=== PATIENT | male | born 1955 | race Caucasian/White ===

== ENCOUNTER 2018-04-29 22:59 | Emergency (ER) | payer BC ==
[2018-04-29] MEDS ORDERED: KETOROLAC 30 MG/ML INJ ONE (23:27)
[2018-04-29] MEDS ORDERED: ONDANSETRON 4 MG/2 ML VIAL ONE (23:27)
[2018-04-29 23:50] LABS: Absolute Lymphocytes (CBC) 2.7 K/uL (0.7-4.9); Absolute Monocytes 0.6 K/uL (0.1-1.3); Absolute Neutrophil 3.7 K/uL (1.8-8.0); Basophils % 0.7 % (0-1.3); Eosinophils % 1.3 % (0-4.4); Lymphocytes % 37.3 % (15.3-44.8); MCH 31.2 pg (27.0-35.0); MPV 9.6 fL (7.6-11.3); RBC Red Blood Cell Count 4.94 M/uL (4.33-5.43)
[2018-04-30 00:02] LABS: Potassium 3.5 mmol/L (3.5-5.1)
[2018-04-30 00:11] LABS: Urine Blood 3+ (NEG); Urine Glucose NEGATIVE (NEG); Urine Protein TRACE (NEG); Urine Specific Gravity >1.030 (1.005-1.030); Urine pH 5.5 (5.0-7.0)
--- NOTE | 2018-04-30 00:54 | EDPHYS ---
Physician Documentation [facility] Name: Alvaro Camargo Age: 63 yrs Sex: Male : 1955 Arrival Date: 04/29/2018 Time: 23:01 Bed 6 Private MD: Andi Jaramillo B ED Physician Leonel Goodman HPI: 04/29 23:39 This 63 yrs old Male presents to ER via Ambulatory with complaints of snw Possible Kidney Stone. 23:39 The patient complains of pain in the left mid back. The pain radiates to the abdomen snw and posterior aspect of left lateral abdomen. Onset: The symptoms/episode began/occurred suddenly. Modifying factors: The symptoms are alleviated by nothing. the symptoms are aggravated by movement. Associated signs and symptoms: Pertinent positives: nausea. Severity of pain: At its worst the pain was moderate. The patient has experienced similar episodes in the past. It is unknown whether or not the patient has recently seen a physician. hx of kidney stones. Historical: - Allergies: 23:13 No Known Allergies; ak1 - Home Meds: 23:13 Simvastatin Oral [Active]; ak1 - PMHx: 23:13 High Cholesterol; ak1 - PSHx: 23:13 left knee; ak1 - Immunization history:: Adult Immunizations unknown. - Social history:: Smoking status: Patient/guardian denies using tobacco. - Ebola Screening: : No symptoms or risks identified at this time. ROS: 23:38 Constitutional: Negative for fever, chills, and weight loss, Eyes: Negative for injury, snw pain, redness, and discharge, ENT: Negative for injury, pain, and discharge, Neck: Negative for injury, pain, and swelling, Cardiovascular: Negative for chest pain, palpitations, and edema, Respiratory: Negative for shortness of breath, cough, wheezing, and pleuritic chest pain, Abdomen/GI: Negative for abdominal pain, nausea, vomiting, diarrhea, and constipation, MS/Extremity: Negative for injury and deformity, Skin: Negative for injury, rash, and discoloration, Neuro: Negative for headache, weakness, numbness, tingling, and seizure. 23:38 : Negative for injury, bleeding, discharge, and swelling. 23:38 Back: Positive for flank pain, on the left, radiated pain. 23:38 : Exam: 23:38 Constitutional: This is a well developed, well nourished patient who is awake, alert, snw and in no acute distress. Head/Face: Normocephalic, atraumatic. Eyes: Pupils equal round and reactive to light, extra-ocular motions intact. Lids and lashes normal. Conjunctiva and sclera are non-icteric and not injected. Cornea within normal limits. Periorbital areas with no swelling, redness, or edema. ENT: Nares patent. No nasal discharge, no septal abnormalities noted. Tympanic membranes are normal and external auditory canals are clear. Oropharynx with no redness, swelling, or masses, exudates, or evidence of obstruction, uvula midline. Mucous membranes moist. Neck: Trachea midline, no thyromegaly or masses palpated, and no cervical lymphadenopathy. Supple, full range of motion without nuchal rigidity, or vertebral point tenderness. No Meningismus. Chest/axilla: Normal chest wall appearance and motion. Nontender with no deformity. No lesions are appreciated. Cardiovascular: Regular rate and rhythm with a normal S1 and S2. No gallops, murmurs, or rubs. Normal PMI, no JVD. No pulse deficits. Respiratory: Lungs have equal breath sounds bilaterally, clear to auscultation and percussion. No rales, rhonchi or wheezes noted. No increased work of breathing, no retractions or nasal flaring. Abdomen/GI: Soft, non-tender, with normal bowel sounds. No distension or tympany. No guarding or rebound. No evidence of tenderness throughout. Skin: Warm, dry with normal turgor. Normal color with no rashes, no lesions, and no evidence of cellulitis. MS/ Extremity: Pulses equal, no cyanosis. Neurovascular intact. Full, normal range of motion. Neuro: Awake and alert, GCS 15, oriented to person, place, time, and situation. Cranial nerves II-XII grossly intact. Motor strength 5/5 in all extremities. Sensory grossly intact. Cerebellar exam normal. Normal gait. 23:38 Back: pain, that is moderate, ROM is normal, normal spinal alignment noted, muscle spasm, is not present. 23:38 : CVA tenderness, is absent. Vital Signs: 23:11 BP 167 / 95; Pulse 61; Resp 18; Temp 97.9(O); Pulse Ox 97% on R/A; Weight 90.72 kg (R); ak1 Height 5 ft. 8 in. (172.72 cm) (R); Pain 10; 04/30 01:15 BP 107 / 60; Pulse 76; Resp 14; Pulse Ox 94% ; bp 04/29 23:11 Body Mass Index 30.41 (90.72 kg, 172.72 cm) ak1 MDM: 04/29 23:37 Patient medically screened. snw 04/30 00:55 Data reviewed: vital signs, nurses notes. Data interpreted: Pulse oximetry: on room air snw is 97 %. Interpretation: normal. Counseling: I had a detailed discussion with the patient and/or guardian regarding: the historical points, exam findings, and any diagnostic results supporting the discharge/admit diagnosis, the presence of at least one elevated blood pressure reading (>120/80) during this emergency department visit, lab results, radiology results, the need for outpatient follow up, to return to the emergency department if symptoms worsen or persist or if there are any questions or concerns that arise at home. Special discussion: I have referred the patient to see his PCP for further evaluation of high blood pressure. Based on the history and exam findings, there is no indication for further emergent testing or inpatient evaluation. I discussed with the patient/guardian the need to see the primary care provider for further evaluation of the symptoms. I discussed with the patient/guardian the need to see the urologist for further evaluation of the symptoms. 04/29 23:16 Order name: CBC with Diff; Complete Time: 00:12 bp 04/29 23:16 Order name: BMP; Complete Time: 00:12 bp 04/29 23:13 Order name: CT Stone Protocol bp 04/29 23:21 Order name: Urine Dipstick--Ancillary (enter results); Complete Time: 00:12 mw2 04/29 23:13 Order name: Urine Dipstick-Ancillary (obtain specimen); Complete Time: 23:17 bp Administered Medications: 04/29 23:31 Drug: TORadol 30 mg Route: IVP; Site: right forearm; ea 04/30 01:05 Follow up: Response: No adverse reaction; Pain is decreased bp 04/29 23:31 Drug: Zofran 4 mg Route: IVP; Site: right forearm; ea 04/30 01:05 Follow up: Response: No adverse reaction; Nausea is decreased bp 01:07 Drug: Flomax 0.4 mg Route: PO; ea 01:18 Follow up: Response: No adverse reaction bp Disposition: 04/30/18 00:53 Discharged to Home. Impression: Hydronephrosis with renal and ureteral calculous obstruction - mild. - Condition is Stable. - Discharge Instructions: Kidney Stones, Hydronephrosis, Dietary Guidelines to Help Prevent Kidney Stones. - Prescriptions for Tylenol- Codeine #3 300-30 mg Oral Tablet - take 2 tablet by ORAL route every 6 hours As needed; 6 tablet. Zofran 4 mg Oral Tablet - take 1 tablet by ORAL route every 12 hours As needed; 20 tablet. Flomax 0.4 mg Oral Capsule, Sust. Release 24 hr - take 1 capsule by ORAL route once daily 1/2 hour following the same meal each day; 30 capsule. - Medication Reconciliation Form, Thank You Letter, Antibiotic Education, Prescription Opioid Use form. - Follow up: Andi Jaramillo MD; When: 1 - 2 days; Reason: Recheck today's complaints, Continuance of care, Re-evaluation by your physician. Follow up: Emergency Department; When: As needed; Reason: Worsening of condition. Addendum: 05/02/2018 18:36 Co-signature as Attending Physician, Leonel Goodman MD. g s Signatures: Dispatcher [employer] EDMS Ryanne Francis, DISTANCE LEARNING TECHNICIAN-C DISTANCE LEARNING TECHNICIAN-Csnw Ronda Ewdards, RN RN ak1 Destinee Brown RN Leonel Garsia ea, MD MD gs Peltier, Brian, RN RN bp Corrections: (The following items were deleted from the chart) 04/30 01:26 00:53 04/30/2018 00:53 Discharged to Home. Impression: Hydronephrosis with renal and bp ureteral calculous obstruction - mild. Condition is Stable. Forms are Medication Reconciliation Form, Thank You Letter, Antibiotic Education, Prescription Opioid Use. Follow up: Andi Jaramillo; When: 1 - 2 days; Reason: Recheck today's complaints, Continuance of care, Re-evaluation by your physician. Follow up: Emergency Department; When: As needed; Reason: Worsening of condition. snw
--- NOTE | 2018-04-30 00:54 | ER ---
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 pt c/o ak1 decreased urine output today. Transition of care: patient was not received from another setting of care. Onset of symptoms was April 29, 2018. Risk Assessment: Do you want to hurt yourself or someone else? Patient reports no desire to harm self or others. Care prior to arrival: None. 23:12 Method Of Arrival: Ambulatory ak1 23:12 Acuity: DAVY 3 ak1 04/30 01:25 Initial Sepsis Screen: Does the patient meet any 2 criteria? No. Patient's initial bp sepsis screen is negative. Does the patient have a suspected source of infection? No. Patient's initial sepsis screen is negative. Triage Assessment: 04/29 23:13 General: Appears in no apparent distress. Behavior is calm, cooperative. ak1 Historical: - Allergies: 23:13 No Known Allergies; ak1 - Home Meds: 23:13 Simvastatin Oral [Active]; ak1 - PMHx: 23:13 High Cholesterol; ak1 - PSHx: 23:13 left knee; ak1 - Immunization history:: Adult Immunizations unknown. - Social history:: Smoking status: Patient/guardian denies using tobacco. - Ebola Screening: : No symptoms or risks identified at this time. Screenin:10 Abuse screen: Denies threats or abuse. Denies injuries from another. Nutritional bp screening: No deficits noted. Tuberculosis screening: No symptoms or risk factors identified. Fall Risk None identified. Assessment: 23:10 General: PT REPORT H/O KIDNEY STONE WITH SIMILAR S/S. Pain: Complains of pain in bp posterior aspect of left lateral abdomen. Neuro: Level of Consciousness is awake, alert, obeys commands, Oriented to person, place, time, situation, Appropriate for age. Cardiovascular: No deficits noted. Respiratory: Airway is patent Respiratory effort is even, unlabored, Respiratory pattern is regular, symmetrical. GI: Bowel sounds present X 4 quads. Abd is soft X 4 quads. : Reports pain in left flank(s), urinary frequency. EENT: No deficits noted. Derm: No signs and/or symptoms reported regarding the dermatologic system. Musculoskeletal: Circulation, motion, and sensation intact. Range of motion: intact in all extremities. 04/30 01:24 Reassessment: PT D/C HOME AMBULATORY WITH FAMILY, DX WITH KIDNEY STONE. bp Vital Signs: 04/29 23:11 BP 167 / 95; Pulse 61; Resp 18; Temp 97.9(O); Pulse Ox 97% on R/A; Weight 90.72 kg (R); ak1 Height 5 ft. 8 in. (172.72 cm) (R); Pain 10; 04/30 01:15 BP 107 / 60; Pulse 76; Resp 14; Pulse Ox 94% ; bp 04/29 23:11 Body Mass Index 30.41 (90.72 kg, 172.72 cm) ak1 ED Course: 04/29 23:01 Patient arrived in ED. do 23:01 Andi Jaramillo MD is Private Physician. do 23:05 Ryanne Francis FNP-C [facility]. snw 23:05 Leonel Goodman MD is Attending Physician. snw 23:10 Kvng Robles, KEYSHAWN is Primary Nurse. bp 23:10 Patient has correct armband on for positive identification. Bed in low position. Call bp light in reach. Side rails up X2. Adult w/ patient. 23:11 Arm band placed on Patient placed in an exam room, on a stretcher, on pulse oximetry, ak1 Patient notified of wait time. 23:12 Triage completed. ak1 23:20 Inserted saline lock: 20 gauge in right forearm, using aseptic technique. bp 04/30 00:[address] via wheelchair. kw1 00:12 CT Stone Protocol In Process Unspecified. EDMS 00:12 CT completed. Patient tolerated procedure well. Patient moved back from CT. kw1 00:53 Andi Jaramilol MD is Referral Physician. snw 01:24 No provider procedures requiring assistance completed. IV discontinued, intact, bp bleeding controlled, No redness/swelling at site. Pressure dressing applied. Administered Medications: 04/29 23:31 Drug: TORadol 30 mg Route: IVP; Site: right forearm; ea 04/30 01:05 Follow up: Response: No adverse reaction; Pain is decreased bp 04/29 23:31 Drug: Zofran 4 mg Route: IVP; Site: right forearm; ea 04/30 01:05 Follow up: Response: No adverse reaction; Nausea is decreased bp 01:07 Drug: Flomax 0.4 mg Route: PO; ea 01:18 Follow up: Response: No adverse reaction bp Outcome: 00:53 Discharge ordered by . sndk 01:25 Discharged to home ambulatory, with family. bp 01:25 Condition: stable 01:25 Discharge instructions given to patient, Instructed on discharge instructions, follow up and referral plans. medication usage, Demonstrated understanding of instructions, follow-up care, medications, Prescriptions given X 3. 01:26 Patient left the ED. bp Signatures: Dispatcher [employer] EDMS Ryanne Francis, TIRE FIXER-C TIRE FIXER-Csnw Ronda Edwards RN RN ak1 Aundrea Aponte Elena RN RN Kvng Sal, RN RN Liyah Holman kw1
[2018-04-30] MEDS ORDERED: TAMSULOSIN 0.4 MG SR CAP ONE (01:10)
--- NOTE | 2018-04-30 06:57 | RAD REPORT ---
EXAM DESCRIPTION: CT - Stone Protocol - 04/30/2018 12:12 am CLINICAL HISTORY: Left flank pain, history of kidney stones A preliminary written report was provided at the time of the study, and the report was reviewed prio r to final dictation. COMPARISON: CT imaging April 2013 TECHNIQUE: Axial 5 mm thick images were obtained without oral or IV contrast. The [id number] span s the entirety of the system including uppermost abdomen and lung bases. All CT scans are performed using dose optimization technique as appropriate and may include automated exposure control or mA/KV adjustment according to patient size. FINDINGS: Mild left-sided hydronephrosis is present. There is a 3 millimeter calcification in the di stal left UVJ at the orifice into the bladder. A similar size and position to calcification was seen in 2013. This may represent a new calcification or persistence of the old calcification with a new ob structive component. No other obstructing or nonobstructing calculi seen. There is trace stranding in the left-side perinephric fat. A 15 millimeter low-density area in the inferior left kidney is proba ary a cyst but not fully characterized. Substantial size change from 2013 is not noted. No suspicious renal masses. Isodense masses and pyelonephritis are not excluded on a stone protocol CT scan. Urina ry bladder is contracted. No other evidence for a ureteral or bladder calculus. Imaged portions of the liver, spleen and pancreas show no suspicious findings on non-contrast imaging . No gallbladder or biliary tree abnormality identified. No significant adrenal finding. No suspicious bowel findings. Mild diverticulosis of the tortuous and redundant sigmoid colon. No div erticulitis or other active bowel process. No mass or bulky lymphadenopathy. Postsurgical changes are present from periumbilical hernia repair. No active process at this site. No free air, free fluid or inflammatory stranding. Lower lumbar disc and bone degenerative change present. There may well be spinal stenosis at L4-5. IMPRESSION: Mild left-sided hydronephrosis secondary to a 3 mm calcification distal left ureter at t he orifice into the bladder. Patient has a very similarly sized calcification in the same location in 2012. Current finding repres ents either a new stone in the same location or persistence of the stone with a new mild obstructive component. Probable cyst lower pole left kidney not fully assessed. Size has not clearly changed from comparison . Prominent lower lumbar degenerative change including probable spinal stenosis at L4-5 from large endp late spur. Follow-up imaging can be obtained based on clinical findings. Isodense masses and pyelonephritis are not excluded on stone protocol technique.
== END 2018-04-30 01:26 | disposition home or self-care (01) ==
LOC: ER 22:59
DX: N13.2 Hydronephrosis with renal and ureteral calculous obstruction (principal); E78.00 Pure hypercholesterolemia, unspecified
CPT/HCPCS: 36415; 74176; 76377; 80048; 81003; 85025; 96374; 96375; 99284; J2405

== ENCOUNTER 2021-03-30 06:37 | Emergency (ER) | payer OTHER ==
[2021-03-30 08:21] LABS: Urine Blood Negative (Negative); Urine Glucose Negative (Negative); Urine Protein Negative (Negative); Urine Specific Gravity 1.015 (1.005-1.030)
[2021-03-30 08:53] LABS: Absolute Lymphocytes (CBC) 1.6 K/uL (0.7-4.9); Basophils % 0.6 % (0-1.3); Hematocrit 40.6 % (39.6-49.0); Lymphocytes % 32.1 % (15.3-44.8); MPV 9.3 fL (7.6-11.3); RBC Red Blood Cell Count 4.59 M/uL (4.33-5.43)
[2021-03-30 08:57] LABS: Urine Bacteria <20 /HPF (NONE SEEN); Urine RBC NONE SEEN /HPF (NONE SEEN)
[2021-03-30 09:05] LABS: Potassium 4.7 mmol/L (3.5-5.1)
--- NOTE | 2021-03-30 09:17 | RAD REPORT ---
EXAM DESCRIPTION: CT - Abdomen Pelvis W Contrast - 03/30/2021 8:45 am CLINICAL HISTORY: unable to urinate COMPARISON: Stone Protocol dated 04/30/2018 TECHNIQUE: Biphasic, helical CT imaging of the abdomen and pelvis was performed following 100 ml non -ionic IV contrast. No oral contrast administered. All CT scans are performed using dose optimization technique as appropriate and may include automated exposure control or mA/KV adjustment according to patient size. FINDINGS: No suspicious findings in the lung bases. The liver, spleen, and pancreas show no suspicious findings. Liver attenuation is borderline to mildl y fatty infiltrated. No portal vein abnormality identified. Gallbladder and biliary tree show no susp icious findings. Symmetric renal function is seen with no hydronephrosis or suspicious renal mass. No pyelonephritis o r acute parenchymal process. Patient has several small left renal cyst that have shown a slight incre ase in size since the 2018 comparison. Benign characteristics are still seen. Small right renal corti daniel cysts are difficult to compare to the prior study due the lack of contrast on prior examination. No worrisome renal parenchymal process seen. No adrenal abnormalities. Partially contracted urinary b ladder shows no suspicious finding. Calcifications are present within a normal sized prostate gland. No dilated bowel loops or bowel wall thickening. Diverticulosis is present in the sigmoid colon. No d iverticulitis. Patient has a mobile cecum positioned in the anterior mid abdomen. Appendix is normal. No free air, free fluid or inflammatory stranding. No hernia, mass or bulky lymphadenopathy. No suspicious bony findings. Disc and bone degenerative changes are present. No acute or pathologic b one process. Degenerative changes are most pronounced at L4-5. IMPRESSION: Normal sized prostate gland is present with central calcifications. Partially filled uri nary bladder shows no suspicious finding. Small bilateral renal cyst showing slight enlargement since 2018 comparison. No acute finding iden tified. Borderline to mild fatty infiltration of the liver. Prominent degenerative changes are present most notable at L4-5 where there is protruding disc materi al and endplate spurring causing spinal stenosis and left foraminal stenosis.
--- NOTE | 2021-03-30 09:55 | ER ---
Nurse's Notes [facility] Name: Alvaro Camargo Age: 65 yrs Sex: Male : 1955 Arrival Date: 03/30/2021 Time: 06:46 Bed 15 Private MD: Diagnosis: Retention of urine, unspecified-resolved Presentation: 03/30 07:16 Chief complaint: Patient states: he is unable to urinate. He states he was recently ap3 seen by his PCP for his annual check up, and everything came back "good". Coronavirus screen: At this time, the client does not indicate any symptoms associated with coronavirus-19. Ebola Screen: No symptoms or risks identified at this time. Initial Sepsis Screen: Does the patient meet any 2 criteria? No. Patient's initial sepsis screen is negative. Does the patient have a suspected source of infection? No. Patient's initial sepsis screen is negative. Risk Assessment: Do you want to hurt yourself or someone else? Patient reports no desire to harm self or others. Onset of symptoms was March 30, 2021. 07:16 Method Of Arrival: Ambulatory ap3 07:16 Acuity: DAVY 3 ap3 Historical: - Allergies: 07:18 No Known Allergies; ap3 - Home Meds: 07:18 atorvastatin oral [Active]; candesartan oral [Active]; ap3 - PMHx: 07:18 High Cholesterol; Hypertensive disorder; ap3 - Immunization history:: Adult Immunizations up to date, Client reports receiving the 1st dose of the Covid vaccine, J\\T\\J. - Social history:: Smoking status: Patient denies any tobacco usage or history of. Screenin:19 Abuse screen: Denies threats or abuse. Nutritional screening: No deficits noted. ap3 Tuberculosis screening: No symptoms or risk factors identified. Fall Risk None identified. Assessment: 07:20 General: Appears in no apparent distress. comfortable, Behavior is calm, cooperative, ap3 appropriate for age. Pain: Denies pain. Neuro: Level of Consciousness is awake, alert, obeys commands, Oriented to person, place, time, situation, Appropriate for age. Cardiovascular: Denies chest pain, Capillary refill < 3 seconds. Respiratory: Airway is patent Respiratory effort is even, unlabored, Respiratory pattern is regular, symmetrical. GI: No signs and/or symptoms were reported involving the gastrointestinal system. : Reports inability to void, since today Denies pain. EENT: No signs and/or symptoms were reported regarding the EENT system. Derm: No signs and/or symptoms reported regarding the dermatologic system. 07:29 Reassessment: nurse completed bladder scan. bladder scan showed 104 ml fluid in bladder.ap3 09:17 Reassessment: Patient and/or family updated on plan of care and expected duration. Pain ap3 level reassessed. Patient is alert, oriented x 3, equal unlabored respirations, skin warm/dry/pink. Patient denies pain at this time. Vital Signs: 07:16 BP 134 / 79; Pulse 54; Resp 18; Temp 97.38(O); Pulse Ox 100% on R/A; Weight 93.44 kg; ap3 Height 5 ft. 8 in. (172.72 cm); Pain 0/10; 08:22 BP 109 / 59; Pulse 48; Resp 17; Pulse Ox 100% on R/A; Pain 0/10; ap3 09:18 BP 96 / 54 LA Supine (auto/reg); Pulse 50; Resp 16; Pulse Ox 100% on R/A; Pain 0/10; ap3 07:16 Body Mass Index 31.32 (93.44 kg, 172.72 cm) ap3 ED Course: 06:46 Patient arrived in ED. am4 07:09 Theodora Billingsley, KEYSHAWN is Primary Nurse. ap3 07:15 Amada Iraheta FNP-C is PHCP. kb 07:15 Elder Schreiber MD is Attending Physician. kb 07:18 Triage completed. ap3 07:21 Nurse Practitioner and/or Physician Religious Ritual Slaughterer to see patient. ap3 07:21 Arm band placed on right wrist. ap3 07:21 Patient has correct armband on for positive identification. Bed in low position. Call ap3 light in reach. Side rails up X 1. Adult w/ patient. Pulse ox on. NIBP on. Door closed. Noise minimized. 08:10 Inserted saline lock: 20 gauge in left antecubital area, using aseptic technique. Blood ap3 collected. 08:45 CT Abd/Pelvis - IV Contrast Only In Process Unspecified. EDMS 10:07 No provider procedures requiring assistance completed. IV discontinued, intact, ap3 bleeding controlled, No redness/swelling at site. Pressure dressing applied. Administered Medications: No medications were administered Outcome: 09:54 Discharge ordered by . john 10:07 Discharged to home ambulatory, with family. ap3 10:07 Condition: good 10:07 Discharge instructions given to patient, Instructed on discharge instructions, follow up and referral plans. Demonstrated understanding of instructions, follow-up care. 10:08 Patient left the ED. ap3 Signatures: Dispatcher [employer] EDAmada López, Theodora Lee, RN RN ap3 Lisette Acosta
--- NOTE | 2021-03-30 09:55 | EDPHYS ---
Physician Documentation [facility] [place] Name: Alvaro Camargo Age: 65 yrs Sex: Male : 1955 Arrival Date: 03/30/2021 Time: 06:46 Bed 15 Private MD: ED Physician Elder Schreiber HPI: 03/30 07:19 This 65 yrs old Male presents to ER via Ambulatory with complaints of Urinary kb Incontinence. 07:19 The patient presents with urinary symptoms, unable to void, Last void was last night. kb Onset: The symptoms/episode began/occurred this morning. Modifying factors: The symptoms are alleviated by nothing, the symptoms are aggravated by nothing. Associated signs and symptoms: The patient has no apparent associated signs or symptoms. Severity of symptoms: At their worst the symptoms were mild, moderate, in the emergency department the symptoms are unchanged. The patient has not experienced similar symptoms in the past. The patient has not recently seen a physician. Pt reports he has been unable to urinate this morning. States last urination was 2300 last night. States he has had to get urinate a few times a night since he has gotten older, but did not get up last night. History of kidney stones, but has never had a problem urinating. . Historical: - Allergies: 07:18 No Known Allergies; ap3 - Home Meds: 07:18 atorvastatin oral [Active]; candesartan oral [Active]; ap3 - PMHx: 07:18 High Cholesterol; Hypertensive disorder; ap3 - Immunization history:: Adult Immunizations up to date, Client reports receiving the 1st dose of the Covid vaccine, J\T\J. - Social history:: Smoking status: Patient denies any tobacco usage or history of. ROS: 07:19 Constitutional: Negative for fever, chills, and weight loss. kb 07:19 : Positive for urinary symptoms, difficulty urinating, Negative for injury or acute deformity. 07:19 All other systems are negative. Exam: 07:18 Constitutional: This is a well developed, well nourished patient who is awake, alert, kb and in no acute distress. ENT: Moist Mucous membranes Respiratory: Respirations even and unlabored. No increased work of breathing, no retractions or nasal flaring. Abdomen/GI: Soft, non-tender. No distention Skin: Warm, dry with normal turgor. Normal color. MS/ Extremity: Pulses equal, no cyanosis. Neurovascular intact. Full, normal range of motion. Neuro: Awake and alert, GCS 15, oriented to person, place, time, and situation. Moves all extremities. Normal gait. Psych: Awake, alert, with orientation to person, place and time. Behavior, mood, and affect are within normal limits. Vital Signs: 07:16 BP 134 / 79; Pulse 54; Resp 18; Temp 97.38(O); Pulse Ox 100% on R/A; Weight 93.44 kg; ap3 Height 5 ft. 8 in. (172.72 cm); Pain 0/10; 08:22 BP 109 / 59; Pulse 48; Resp 17; Pulse Ox 100% on R/A; Pain 0/10; ap3 09:18 BP 96 / 54 LA Supine (auto/reg); Pulse 50; Resp 16; Pulse Ox 100% on R/A; Pain 0/10; ap3 07:16 Body Mass Index 31.32 (93.44 kg, 172.72 cm) ap3 MDM: 07:15 Patient medically screened. kb 07:19 Data reviewed: vital signs, nurses notes. Data interpreted: Pulse oximetry: on room air kb is 100 %. Interpretation: normal. 09:53 Counseling: I had a detailed discussion with the patient and/or guardian regarding: the kb historical points, exam findings, and any diagnostic results supporting the discharge/admit diagnosis, lab results, radiology results, the need for outpatient follow up, a family practitioner, a urologist, to return to the emergency department if symptoms worsen or persist or if there are any questions or concerns that arise at home. ED course: Pt able to urinate without difficulty now. Denies pain, dysuria, or any other symptoms of UTI. . 03/30 07:33 Order name: CBC with Diff; Complete Time: 09:00 kb 03/30 07:33 Order name: Basic Metabolic Panel; Complete Time: 09:13 kb 03/30 07:33 Order name: CT Abd/Pelvis - IV Contrast Only; Complete Time: 09:29 kb 03/30 07:34 Order name: Urine Microscopic Only; Complete Time: 09:00 kb 03/30 08:21 Order name: Urine Dipstick-Ancillary EDMS 03/30 08:58 Order name: Urine Culture EDPR 03/30 07:18 Order name: Bladder Scanner; Complete Time: 07:29 kb 03/30 07:33 Order name: IV Start; Complete Time: 08:20 kb 03/30 07:34 Order name: Urine Dipstick-Ancillary (obtain specimen); Complete Time: 08:20 kb Administered Medications: No medications were administered Disposition: 15:02 Co-signature as Attending Physician, Elder Schreiber MD I agree with the assessment and kdr plan of care. Disposition Summary: 03/30/21 09:54 Discharge Ordered Location: Home kb Condition: Stable kb Diagnosis - Retention of urine, unspecified - resolved kb Followup: kb - With: Emergency Department - When: As needed - Reason: Worsening of condition Followup: kb - With: Private Physician - When: 2 - 3 days - Reason: Recheck today's complaints, Continuance of care, Re-evaluation by your physician Discharge Instructions: - Discharge Summary Sheet kb - Acute Urinary Retention, Male, [id number] kb Forms: - Medication Reconciliation Form kb - Thank You Letter kb - Antibiotic Education kb - Prescription Opioid Use kb Signatures: Dispatcher [employer] EDPR Amada Iraheta, RAILWAY SIGNALLING ENGINEER-C RAILWAY SIGNALLING ENGINEER-Elder Fitzgerald MD MD kdr Theodora Billingsley RN RN ap3
[2021-03-30 10:22] VITALS: O2SAT 100
[2021-03-30 10:27] VITALS: BP 96/54
== END 2021-03-30 10:08 | disposition home or self-care (01) ==
LOC: ER 06:37
DX: R33.9 Retention of urine, unspecified (principal); I10 Essential (primary) hypertension; E78.00 Pure hypercholesterolemia, unspecified
CPT/HCPCS: 87088; 85025; 87086; 80048; 36415; 82565; 74177; 99284; Q9967; 81003; 81015